=== PATIENT | female | born 1995 | race African-American/Black ===

== ENCOUNTER 2020-12-17 13:10 | Emergency (ER) | payer OTHER ==
[~2020-12-17] VITALS: Ht 149.9 cm; Wt 72.6 kg
[2020-12-17 13:17] VITALS: BP 167/110
[2020-12-17] MEDS ORDERED: ACETAMINOPHEN 325 MG TABLET ONE (13:50)
[2020-12-17] MEDS ORDERED: IBUPROFEN 600 MG TABLET ONE (13:51)
[2020-12-17] MEDS: IBUPROFEN 600 MG TABLET PO ONE (13:54)
[2020-12-17] MEDS: ACETAMINOPHEN 325 MG TABLET PO ONE (13:54)
[2020-12-17] MEDS ORDERED: ACET-2605 PO (13:55)
[2020-12-17] MEDS ORDERED: IBUP-1955 PO (13:55)
--- NOTE | 2020-12-17 14:08 | NUR ---
Patient discharged to home in stable condition. Written and verbal after care instructions given. Patient verbalizes understanding of instruction. Pt ambulatory with a steady gait
== END 2020-12-17 14:09 | disposition home or self-care (01) ==
LOC: ER 13:13
DX: G89.29 Other chronic pain (principal); M25.561 Pain in right knee; M25.562 Pain in left knee; I10 Essential (primary) hypertension; Z91.018 Allergy to other foods

== ENCOUNTER 2021-05-06 08:49 | Emergency (ER) | payer BC, OTHER ==
[~2021-05-06] VITALS: Ht 149.9 cm; Wt 79.4 kg
[~2021-05-06 08:49] MED LIST: ACET-2605 PO; IBUP-1955 PO
--- NOTE | 2021-05-06 09:15 | NUR ---
THE PATIENT BIBS FOR C/O CHEST PAIN PRESSURE LIKE STARTED LAST NIGHT. RATES PAIN 5/10. DENIES SOB. IN ROOM AIR, RESPIRATION REGULAR AND UNLABORED. ATTACHED TO THE MONITOR. WILL CONTINUE TO MONITOR THE PATIENT.
[2021-05-06 09:24] LABS: BASOPHILS % (AUTO) 0.3 % (0.0-2.0); EOSINOPHILS % (AUTO) 2.7 % (0.0-6.0); HEMATOCRIT 40 % (33-45); HEMOGLOBIN 13.1 g/dL (11.5-14.8); LYMPHOCYTES # (AUTO) 1.9 K/uL (0.8-4.8); LYMPHOCYTES % (AUTO) 37.9 % (20.0-44.0); MEAN CORPUSCULAR HGB CONC 33 g/dl (31.0-36.0); MEAN CORPUSCULAR VOLUME 84 fL (82-100); MONOCYTES # (AUTO) 0.6 K/uL (0.1-1.30); MONOCYTES % (AUTO) 10.8 % (2.0-12.0); NEUTROPHILS # (AUTO) 2.5 K/uL (1.8-8.9); NEUTROPHILS % (AUTO) 48.3 % (43.0-81.0); PLATELET COUNT (AUTO) 153 K/uL (150-450); RED BLOOD CELL COUNT(AUTO) 4.77 MIL/uL (4.0-5.2); WHITE BLOOD COUNT (AUTO) 5.1 K/uL (4.3-11.0)
[2021-05-06 09:37] LABS: ALANINE AMINOTRANSFERASE 22 U/L (12-78); ALBUMIN 3.7 g/dL (3.4-5.0); ALKALINE PHOSPHATASE 62 U/L (46-116); ASPARTATE AMINOTRANSFERASE 14 U/L (15-37); BILIRUBIN,DIRECT 0.1 mg/dL (0.0-0.2); BILIRUBIN,TOTAL 0.2 mg/dL (0.2-1.0); CALCIUM, SERUM 9.2 mg/dL (8.5-10.1); CARBON DIOXIDE 28 mmol/L (21-32); CHLORIDE 106 mmol/L (98-107); CREATININE 1.1 mg/dL (0.6-1.3); GLUCOSE 100 mg/dL (74-106); POTASSIUM 5.1 mmol/L (3.5-5.1); SODIUM SERUM 141 mmol/L (136-145); TOTAL PROTEIN, SERUM 7.2 g/dL (6.4-8.2); UREA NITROGEN, BLOOD 13 mg/dL (7-18)
[2021-05-06] MEDS ORDERED: HYDR12.55 PO (10:04)
[2021-05-06 10:09] VITALS: BP 150/100
--- NOTE | 2021-05-06 10:10 | NUR ---
PATIENT AOX4, BREATHING EVEN AND UNLABORED, NO SOB NOTED. AMBULATORY WITH STEADY GAIT. Patient discharged to home in stable condition. Written and verbal after care instructions given. Patient verbalizes understanding of instruction.
== END 2021-05-06 10:10 | disposition home or self-care (01) ==
LOC: ER 09:17
DX: R07.89 Other chest pain (principal); I10 Essential (primary) hypertension; Z91.010 Allergy to peanuts
CPT/HCPCS: 36415; 71045-TC; 80048-TC; 80076-TC; 84484-TC; 85025-TC; 85378-TC

== ENCOUNTER 2021-09-16 08:35 | Emergency (ER) | payer BC ==
[~2021-09-16] VITALS: Ht 149.9 cm; Wt 78.0 kg
[~2021-09-16 08:35] MED LIST changes: +HYDR12.55 PO
--- NOTE | 2021-09-16 08:50 | NUR ---
PT SEEN AND EXAMINED BY .
--- NOTE | 2021-09-16 08:58 | NUR ---
x-ray tech at bedside for exam.
[2021-09-16 09:07] LABS: BASOPHILS % (AUTO) 0.4 % (0.0-2.0); EOSINOPHILS % (AUTO) 2.2 % (0.0-6.0); HEMATOCRIT 39 % (33-45); HEMOGLOBIN 12.6 g/dL (11.5-14.8); LYMPHOCYTES # (AUTO) 2.1 K/uL (0.8-4.8); LYMPHOCYTES % (AUTO) 38.8 % (20.0-44.0); MEAN CORPUSCULAR HGB CONC 32 g/dl (31.0-36.0); MEAN CORPUSCULAR VOLUME 84 fL (82-100); MONOCYTES # (AUTO) 0.6 K/uL (0.1-1.30); MONOCYTES % (AUTO) 11.5 % (2.0-12.0); NEUTROPHILS # (AUTO) 2.6 K/uL (1.8-8.9); NEUTROPHILS % (AUTO) 47.1 % (43.0-81.0); PLATELET COUNT (AUTO) 166 K/uL (150-450); RED BLOOD CELL COUNT(AUTO) 4.69 MIL/uL (4.0-5.2); WHITE BLOOD COUNT (AUTO) 5.5 K/uL (4.3-11.0)
[2021-09-16 09:17] LABS: CALCIUM, SERUM 9.5 mg/dL (8.5-10.1); CARBON DIOXIDE 30 mmol/L (21-32); CHLORIDE 104 mmol/L (98-107); CREATININE 1.1 mg/dL (0.6-1.3); GLUCOSE 91 mg/dL (74-106); POTASSIUM 4.6 mmol/L (3.5-5.1); SODIUM SERUM 139 mmol/L (136-145); UREA NITROGEN, BLOOD 16 mg/dL (7-18)
--- NOTE | 2021-09-16 09:56 | NUR ---
Patient discharged to home in stable condition. Written and verbal after care instructions given. Patient verbalizes understanding of instruction.
[2021-09-16 09:57] VITALS: BP 144/93
== END 2021-09-16 09:57 | disposition home or self-care (01) ==
LOC: ER 08:39
DX: R07.89 Other chest pain (principal); I10 Essential (primary) hypertension; Z91.010 Allergy to peanuts
CPT/HCPCS: 36415; 71045-TC; 80048-TC; 84484-TC; 85025-TC; 85378-TC

== ENCOUNTER 2021-10-07 16:44 | Emergency (ER) | payer BC ==
[~2021-10-07] VITALS: Ht 149.9 cm; Wt 72.6 kg
[2021-10-07 16:55] VITALS: BP 145/106
--- NOTE | 2021-10-07 17:24 | NUR ---
Patient discharged to home in stable condition. Written and verbal after care instructions given. Patient verbalizes understanding of instruction.
== END 2021-10-07 17:25 | disposition home or self-care (01) ==
LOC: ER 16:47
DX: Z20.822 Contact with and (suspected) exposure to COVID-19 (principal); R51.9 Headache, unspecified
CPT/HCPCS: 87426; 99283; C9803